=== PATIENT | male | born 1930 | race Caucasian/White ===

== ENCOUNTER 2018-12-22 10:28 | Emergency (ER) | payer MEDICARE, OTHER ==
[2018-12-22 10:30] VITALS: Wt 79.5 kg
[2018-12-22] MEDS ORDERED: PROSCAR5 MG PO (11:00)
[2018-12-22] MEDS ORDERED: LOTREL 5/10 MG1 CAP PO (11:01)
[2018-12-22 11:02] LABS: APTT 27.4 SECONDS (22.8-39.4); INR 1.19 (0.85-1.17); PROTIME 14.6 SECONDS (11.6-15.0)
[2018-12-22] MEDS ORDERED: NEXIUM40 MG PO (11:02)
[2018-12-22] MEDS ORDERED: PRAVACHOL40 MG PO (11:02)
[2018-12-22] MEDS ORDERED: SYNTHROID50 MCG PO (11:02)
[2018-12-22 11:07] LABS: BASOPHILS 0.1 % (0-2); EOSINOPHILS 0 % (0-7); HEMATOCRIT 36.6 % (42.0-54.0); HEMOGLOBIN 12.8 g/dL (13.5-17.5); IMMATURE GRANULOCYTES 0.3 % (0-5); MCH 31.2 pg (26.0-34.0); MCV 89.3 fL (80.0-100.0); MEAN PLATELET VOLUME 9.3 fL (7.4-10.4); MONOCYTES 5.5 % (2-11); NEUTROPHILS 88.1 % (40-80); PLATELET COUNT 121 10x3/uL (130-400); RDW 12.5 % (11.5-14.5); WBC 14.6 10x3/uL (4.8-10.8)
[2018-12-22 11:08] LABS: ALBUMIN 3.6 g/dL (3.4-5.0); ALKALINE PHOSPHATASE 61 U/L (46-116); ALT (SGPT) 18 U/L (10-68); BILIRUBIN - TOTAL 0.48 mg/dL (0.2-1.3); CALC OSMOLALITY 286 mosm/kg (275-300); CARBON DIOXIDE 25.1 mmol/L (21.0-32.0); CHLORIDE - SERUM 104 mmol/L (98-107); CREATININE - SERUM 0.7 mg/dL (0.6-1.3); GLUCOSE 129 mg/dL (74-106); POTASSIUM - SERUM 4.1 mmol/L (3.5-5.1); PROTEIN - SERUM 6.7 g/dL (6.4-8.2); SODIUM 139 mmol/L (136-145); UREA NITROGEN 32 mg/dL (7-18); eGFR NON AFRICAN AMERICAN > 90 mL/min (90-120)
[2018-12-22 11:17] LABS: CKMB 1.5 U/L (0.0-3.6); CREATINE KINASE 62 UL (21-232); MAGNESIUM - SERUM 1.8 mg/dL (1.8-2.4)
[2018-12-22 11:19] LABS: TROPONIN-I < 0.017 ng/mL (0.000-0.060)
[2018-12-22 12:01] LABS: APPEARANCE CLEAR (CLEAR); BACTERIA FEW /hpf (NEGATIVE); BILIRUBIN NEGATIVE (NEGATIVE); COLOR STRAW (YELLOW); EPITHELIAL CELLS 0-5 /hpf (0-5); GLUCOSE NEGATIVE (NEGATIVE); KETONE MODERATE mg/dL (NEGATIVE); MUCUS <1+ /lpf (NONE SEEN); NITRITE NEGATIVE (NEGATIVE); PROTEIN NEGATIVE (NEGATIVE); RED CELLS - URINE 0-5 /hpf (0-5); SPECIFIC GRAVITY 1.005 (1.005-1.020); UROBILINOGEN NORMAL (NORMAL); WHITE CELLS - URINE 0-5 /hpf (NEGATIVE)
[2018-12-22] MEDS ORDERED: MACROBID100 MG PO (14:27)
[2018-12-22] MEDS ORDERED: KEFLEX500 MG PO (14:27)
[2018-12-22 16:01] VITALS: BP 115/72
== END 2018-12-22 16:44 | disposition home or self-care (01) ==
LOC: D.ER 10:28
PROVIDERS: Family Medicine
DX: R07.9 Chest pain, unspecified (principal); N39.0 Urinary tract infection, site not specified